=== PATIENT | female | born 1970 | race Caucasian/White ===

== ENCOUNTER → 2017-07-28 | Outpatient (CLI) | payer OTHER | END | disposition home or self-care (01) | LOC: LAB EV 11:16 | DX: R31.21 Asymptomatic microscopic hematuria (principal) | CPT/HCPCS: 87086 ==

== ENCOUNTER → 2018-03-02 | Outpatient (CLI) | payer OTHER | END | disposition home or self-care (01) | LOC: LAB SHORT 14:06 → PLD 14:06 | DX: N92.1 Excessive and frequent menstruation with irregular cycle (principal) | CPT/HCPCS: 88305 ==

== ENCOUNTER 2018-10-01 05:34 | Day surgery (SDC) | payer OTHER ==
[~2018-10-01] VITALS: Ht 167.6 cm; Wt 67.0 kg
[~2018-10-01 05:34] MED LIST: ALBU90OI INH; CAL-MAG TABLET1 EACH PO; CHOL10002 PO; CLON.5 PO; CRANBERRY250 MG PO; CYCL10 PO; DULO30 PO; Flonase 0.05% N16 GM; GABA300 PO; Junel Fe 1-201 EACH PO; Prinivil10 MG PO; TRAM50 PO; Vitamin B Comple1 EA PO
--- NOTE | 2018-10-01 06:21 | NUR ---
History, Chart, Medications and Allergies reviewed before start of procedure. Patient confirms NPO status and agrees with scheduled surgery. Patient reports completing Chlorhexadine bath X2 prior to admission to hospital.
--- NOTE | 2018-10-01 06:48 | NUR ---
PATIENT REPORTS HX OF TUBAL LIGATION. NO HCG INDICATED.
[2018-10-02 05:44] LABS: BASOPHILS ABSOLUTE AUTO 0.03 K/mm3 (0.00-0.23); BASOPHILS PERCENT AUTO 0 % (0-2); EOSINOPHILS ABSOLUTE AUTO 0.24 K/mm3 (0.00-0.68); EOSINOPHILS PERCENT AUTO 2 % (0-6); Hematocrit 34.1 % (33.0-51.0); Hemoglobin 11.1 g/dL (11.5-16.0); IMMATURE GRAN ABSOLUTE AUTO 0.04 K/mm3 (0.00-0.10); IMMATURE GRAN PERCENT AUTO 0 % (0-1); LYMPHOCYTES ABSOLUTE AUTO 3.06 K/mm3 (0.84-5.20); LYMPHOCYTES PERCENT AUTO 26 % (21-46); MONOCYTES ABSOLUTE AUTO 1.24 K/mm3 (0.16-1.47); MONOCYTES PERCENT AUTO 11 % (4-13); Mean Corpuscular HGB 29.4 pg (26.0-34.0); Mean Corpuscular HGB Conc 32.6 g/dL (31.5-36.5); Mean Corpuscular Volume 91 fL (80-100); Mean Platelet Volume 10.5 fL (9.1-12.4); NEUTROPHILS ABSOLUTE AUTO 7.15 K/mm3 (1.96-9.15); NEUTROPHILS PERCENT AUTO 61 % (41-73); Platelet Count 288 K/mm3 (150-400); RDW Coefficient Variation 12.4 % (11.7-14.2); RDW Standard Deviation 41.3 fL (35.1-46.3); Red Blood Cell Count 3.77 M/mm3 (3.80-5.20); White Blood Cell Count 11.76 K/mm3 (4.00-11.30)
--- NOTE | 2018-10-02 10:12 | NUR ---
DISCHARGE INSTRCTIONS GIVEN, SIGNED, All QUESTIONS ANSWERED
--- NOTE | 2018-10-02 10:20 | NUR ---
PT DISCHARGED TO HOME WITH INSTRUCTIONS AND POST OFFICE VISITS MADE
== END 2018-10-02 10:15 | disposition home or self-care (01) ==
LOC: ORSCMMR 05:34 → ORD 07:30 → BC 10:48 → ORSCMMR 10-02 10:15 → BC 10-02 10:15
PROVIDERS: Obstetrics & Gynecology
PROC: 0UT7FZZ Resection of Bilateral Fallopian Tubes, Via Natural or Artificial Opening With Percutaneous Endoscopic Assistance (ICD-10-PCS; principal; 2018-10-01 07:30)
PROC: 0UT9FZZ Resection of Uterus, Via Natural or Artificial Opening With Percutaneous Endoscopic Assistance (ICD-10-PCS; principal; 2018-10-01 07:30)
DX: N80.0 Endometriosis of uterus (principal); N92.1 Excessive and frequent menstruation with irregular cycle; N94.6 Dysmenorrhea, unspecified; D25.9 Leiomyoma of uterus, unspecified; K66.0 Peritoneal adhesions (postprocedural) (postinfection); I10 Essential (primary) hypertension; J45.909 Unspecified asthma, uncomplicated; Z79.899 Other long term (current) drug therapy
CPT/HCPCS: 36415; 85025; 88307; 96374; J0690; J1100; J1885; J2250; J2370; J2405; J2710; J3010; J7120; Q0163

== ENCOUNTER → 2025-06-11 | Outpatient (CLI) | payer OTHER ==
[~2025-06-11] MED LIST changes: +BUPROPION XL150 M1 PO; +IBUP400 PO
[2025-06-11 10:02] LABS: Sodium, Urine 51 mmol/L (20-110)
== END ==
LOC: LAB SHORT 08:51 → LAB 08:51 → LAB FUT 06-09 09:40
PROVIDERS: Internal Medicine Endocrinology, Diabetes & Metabolism
DX: R35.89 Other polyuria (principal); R53.1 Weakness
CPT/HCPCS: 81050; 84300